=== PATIENT | male | born 1955 | race Caucasian/White ===

== ENCOUNTER 2025-04-29 06:08 | Day surgery (SDC) | payer MEDICARE, OTHER ==
[2025-04-29] MEDS ORDERED: Lactated Ringers 1,000 ML IV ONE (06:15)
[2025-04-29] MEDS ORDERED: CEFAZOLIN SODIUM ONE (06:15)
[2025-04-29] MEDS ORDERED: EXPAREL 133 MG/10 ML VIAL IJ ONE (06:26)
[2025-04-29] MEDS ORDERED: Marcaine Mpf 0.5% Vial 30 Ml ONE (06:26)
[2025-04-29] MEDS: Lactated Ringers 1,000 ML IV SCH (06:29)
[2025-04-29 06:38] LABS: Hematocrit 48.0 % (40.1-51.0); Hemoglobin 15.5 g/dL (13.7-17.5); Mean Corpuscular Hemoglobin 29.2 pg (25.7-32.2); Mean Corpuscular Hgb Concent. 32.3 g/dL (32.3-36.5); Platelet Count 159 x10^3/uL (163-337); Red Blood Count 5.30 x10^6/uL (4.63-6.08); White Blood Count 7.3 x10^3/uL (4.23-9.07)
[2025-04-29 07:03] LABS: Calcium 9.7 mg/dL (8.4-10.2); Carbon Dioxide 23.0 mmol/L (22-30); Creatinine 1 0.68 mg/dL (0.66-1.25); EST GLOMERULAR FILTRATION RATE 99.4 ML/MIN; Glucose 98.0 mg/dL (74-106); Potassium 4.1 mmol/L (3.5-5.1); SGOT/AST 38.0 U/L (17-59); SGPT/ALT 39.0 U/L (0-50); Total Protein 6.9 g/dL (6.3-8.2)
[2025-04-29] MEDS ORDERED: Versed 2 MG/2 ML Injection ONE (07:04)
[2025-04-29] MEDS ORDERED: SUBLIMAZE 100 MCG/2 ML ONE (07:04)
[2025-04-29] MEDS ORDERED: propofoL IV ONE (07:24)
[2025-04-29] MEDS ORDERED: Xylocaine-Mpf 2% 5 Ml Vial ONE (07:24)
[2025-04-29] MEDS ORDERED: TORAdol 30 mg Injection ONE (07:36)
[2025-04-29] MEDS ORDERED: Zofran 4 MG/2 ML VIAL ONE (07:36)
[2025-04-29] MEDS ORDERED: PHENYLEPHRINE HCL ONE (07:39)
[2025-04-29] MEDS ORDERED: PITRESSIN 20 UNITS ONE (07:41)
[2025-04-29] MEDS ORDERED: Ephedrine Sulfate 50 MG/ML ONE (08:02)
--- NOTE | 2025-04-29 09:07 | XRAY ---
Indication: Left 1st metatarsal arthrodesis. Intraoperative fluoroscopy provided for 1 minute 4 seconds. 13 digital spot images submitted for interpretation demonstrates 1st MTP arthrodesis with intact fixation plate/screws. Correlate with intraoperative findings/report.
[2025-04-29 09:29] VITALS: RESP 16
[2025-04-29 09:43] VITALS: BP 115/61; PULSE 63; O2SAT 92
[2025-04-29 10:08] VITALS: TEMP 97
--- NOTE | 2025-04-29 10:29 | XRAY ---
One minute and 4 seconds of fluoroscopy was used in surgery for a left 1st metatarsal arthrodesis.
--- NOTE | 2025-05-02 10:17 | OP ---
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 2) Left hallux valgus. 3) Left foot pain. 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 2) Left hallux valgus. 3) Left foot pain. PROCEDURE: Left 1st metatarsophalangeal joint arthrodesis. SURGEON: Naveen Thomason DPM VALVE TECHNICIAN: CHAD Sosa HEMOSTASIS: Ankle tourniquet set to 250 mmHg for a total of 35 total tourniquet minutes. ESTIMATED BLOOD LOSS: Minimal. INJECTABLES: See Anesthesia report for details. Popliteal and saphenous block. MATERIALS: 4-0 Monocryl; 3-0 nylon; [employer] 0 degree, 1st MPJ, left, with 4.0 x 38 mm VPC screw. INDICATIONS: The patient is a very pleasant 69-year-old male who presented to my service for long-term pain to the left foot that has resulted in significant discomfort with ambulation particularly when he is golfing and he can no longer stand standing all day on his feet without significant amount of pain. Patient had x-rays obtained which showed joint space narrowing of the 1st metatarsophalangeal joint, which likely the cause is osteoarthritis, and there is also a significant limitation in his range of motion. From that standpoint, discussion was held regarding options and patient wished to proceed with the most definitive option which in my opinion is the arthrodesis. From that standpoint, patient was consented for surgery. He did recently have, back in February, peripheral vascular disease which was addressed; however, he does have dopplerable pulses, has a PT of triphasic, and DP is biphasic at this moment, so his capacity to heal is very high. From that standpoint, all risks, complications, and benefits of surgical intervention were discussed, included but not limited to infection, hematoma, seroma, possibility of delayed wound healing, non-wound healing, and possible need for further surgical intervention at a later date. No guarantees were provided as to the outcome; however, plenty of time was allowed for the patient to ask questions, which were answered to his apparent satisfaction. It is at this time we decided to proceed. DESCRIPTION OF PROCEDURE AND FINDINGS: Patient was brought into the PACU prior to the procedure and provided a popliteal and saphenous block. See Anesthesia report for details. Patient was then brought into the operating room and placed on the operating room table in the supine position. General anesthesia was administered until the patient was adequately sedated. Once the patient was sedated, a well-padded ankle tourniquet was applied to the patient's left ankle and the tourniquet was set to 250 mmHg. Left foot was prepped and draped in the typical sterile fashion and lowered onto the surgical field. At this time, attention was directed to the dorsal aspect of the 1st MPJ where a linear incision was made just medial to the extensor hallucis longus tendon. This was carried down to the level of the 1st metatarsophalangeal joint being careful not to damage any neurovascular structures. Any neurovascular structures that were encountered were either retracted or bovied and held out of the way of the procedure for the remainder of the case. The capsule was incised and a significant amount of erosion of the lateral aspect of the 1st metatarsal head was identified. Once this was identified, a decision was made to go forward with the procedure. A J stroke was performed on each side of the 1st metatarsophalangeal joint and the McGlamry was then utilized to pull the toe to be able to get access to the 1st metatarsal head. From that standpoint, we were able to get access. Cup and conical reamers were utilized to denude any of the remaining cartilage from the 1st metatarsal as well as the proximal phalangeal head. Once this was performed, copious amounts of sterile saline were utilized to flush the surgical site. A 2 mm drill was utilized to fenestrate the joint surfaces on both sides to allow for vascular ingrowth and then an ALPS 0-degree 1st metatarsal plate from [employer] was then introduced dorsally. Once this was introduced, distal locking screws were placed first. Once position was assessed and deemed to be adequate at this time, a 4.0 x 38 mm VPC screw was introduced between the interfragmentary and the eccentric compression. This was alternated until excellent compression was identified between the 1st metatarsophalangeal joint. Once this was accomplished, combination of locking and non-locking screws were utilized to fill the remaining holes of the plate. Position was assessed and deemed to be adequate in both sagittal plane, transverse plane as well as with frontal plane rotation. From that standpoint, copious amounts of sterile saline were utilized to flush the surgical site. The capsule of the 1st metatarsophalangeal joint was then repaired over the plate utilizing 4-0 Monocryl in running continuous and then a 4-0 Monocryl utilizing a simple interrupted buried-type fashion for the subcutaneous tissue. A 3-0 nylon was then utilized to coapt the skin in a horizontal mattress-type fashion. A dressing consisting of Betadine, Adaptic, 4 x 4, Kerlix, ABD, and Terrell was applied to the patient's left lower extremity and patient was provided a CAM boot. Patient was then reversed from anesthesia and returned to the postoperative anesthesia care unit with vital signs stable and vascular status intact. The patient handled the anesthesia as well as the procedure without significant complication. Postoperative orders as indicated in the patient's discharge chart.
== END 2025-04-29 10:06 | disposition home or self-care (01) ==
LOC: SDC 06:08
PROVIDERS: ATTEND Podiatrist Foot & Ankle Surgery
DX: M19.072 Primary osteoarthritis, left ankle and foot (principal); M20.12 Hallux valgus (acquired), left foot; M79.672 Pain in left foot
CPT/HCPCS: 01480; 28750; 36415; 64447; 64450; 73630; 76000; 76942; 80053; 85027; 93005; 99100; C1713